=== PATIENT | female | born 1965 | race Caucasian/White ===

== ENCOUNTER 2024-12-08 18:43 | Emergency (ER) | payer BC, OTHER ==
[~2024-12-08] VITALS: Ht 167.6 cm; Wt 90.0 kg
[2024-12-08 18:49] VITALS: O2SAT 100
[2024-12-08] MEDS ORDERED: P50 MT (20:21)
[2024-12-08] MEDS ORDERED: CETI-341 PO (20:21)
[2024-12-08] MEDS ORDERED: AMOX1TAB16 MT (20:21)
[2024-12-08] MEDS ORDERED: SULF1TAB48 MT (20:21)
[2024-12-08 20:30] VITALS: BP 166/91; PULSE 66; RESP 16; TEMP 36.9; O2SAT 98
== END 2024-12-08 20:46 | disposition home or self-care (01) ==
LOC: ER 18:43
DX: T78.40XA Allergy, unspecified, initial encounter (principal); L02.211 Cutaneous abscess of abdominal wall; I10 Essential (primary) hypertension; E78.00 Pure hypercholesterolemia, unspecified; Z88.1 Allergy status to other antibiotic agents; X58.XXXA Exposure to other specified factors, initial encounter
CPT/HCPCS: 99283